=== PATIENT | female | born 1965 | race Caucasian/White ===

== ENCOUNTER → 2019-04-01 | Outpatient (CLI) | payer OTHER ==
[~2019-04-01] MED LIST: ASPI325T8 PO; ATOR20TA58 PO; IBUP1TAB12 PO; METO-239 PO
--- NOTE | 2019-04-01 16:42 | RAD ---
MR#: [id number] Date of Study: 04/01/2019 Ordering Physician: SHELBI ARZOLA, Referring Physician: APRYL WILSON Tech: RT Ada Taylor) (N) APPROVED REPORT Test Type: Exercise Stress Nurse/Tech: RT Claudia (Ronnie) (N) Test Indications: chest pain Cardiac History: none Medications: see EHR Medical History: see EHR Resting ECG: sinus rythym Resting Heart Rate: 66 bpm Resting Blood Pressure: 141/86mmHg Pretest Chest Pain: None Nurse/Tech Notes Consent: The procedure was explained to the patient in lay terms. Informed consent was witnessed. Mateusz eout was entered into [employer]. History and Stress Test performed by RT Ada Taylor) (N) POST EXERCISE Reason for Termination: Fatigue Target HR: Yes Max HR: 190 bpm 113% of Maximum Predicted HR: 168 bpm Exercise duration: 6:11 min:sec, 2 Stage Exercise capacity: 7METs Max Blood Pressure: 194/101mmHg Chest Pain: No. INTERPRETATION Stress EKG Conclusion: No evidence of stress induced EKG changes. Imaging Protocol IMAGE PROTOCOL: Rest Tc-99m/stress Tc-99m 1 day Rest: Stress: Viability: Radiopharm.Tc99m [id number] Sestamibi Dose10.5mCi 31.3mCi Duration 15min. 10min. Img Date 04/01/2019 04/01/2019 Inj-Img [id number]. 60min. Post-Injection Exercise: 1 minute Rest Admin Site:IV - Left AntecubitalAdministrator: RT Claudia (Ronnie)(N) Stress Admin Site: IV - Left AntecubitalAdministrator: RT Ada Taylor)(N) STRESS DATA End Diast. Vol.72.0mlAv. Heart Rate76.0bpm End Syst. Vol.18.0mlCO Index BSA0.0L/min Myocardial Fyyu184.0gEject. Eetkbcik05.0% Stress Rates Pk. Fill Rate3.33EDV/secLVtime Pk. Fill 220.45msec Pk. Empty Rate3.75ESV/secLVtime Pk. Rghip058.05msec 1/3 Pk. Fill1.41EDV/sec Stress Scores Regional WT0.00Summed WT0.00 Regional WM0.00Summed WM2.00 The rest and stress images show normal perfusion, normal contraction and thickening. LV Perf. Quant 17 Seg. SSS0.00 17 Seg. SRS1.00 17 Seg. SDS0.00 Stress Defect Extent (% LAD)0.00Rest Defect Extent (% LAD)0.00Rev. Defect Extent (% LAD)0.00 Stress Defect Extent (% LCX) 0.00Rest Defect Extent (% LCX)0.00Rev. Defect Extent (% LCX)0.00 Stress Defect Extent (% RCA)0.00Rest Defect Extent (% RCA)0.00Rev. Defect Extent (% RCA)0.00 Stress Defect Extent (% DARIEN)0.00Rest Defect Extent (% DARIEN)0.00Rev. Defect Extent (% DARIEN)0.00 Other Information Quality:Good Risk Assessment: Low Risk Conclusion 1. No evidence of EKG changes with stress testing. 2. Normal perfusion at stress/rest. 3. Low risk study. 4. EF > 60%. Signed by : Shelbi Arzola, Electronically Approved : 04/01/2019 16:41:52
== END | disposition home or self-care (01) ==
LOC: NM 08:24
PROVIDERS: ATTEND Internal Medicine Cardiovascular Disease
DX: R07.9 Chest pain, unspecified (principal)
CPT/HCPCS: 78452; 93017; A9500; 96376

== ENCOUNTER → 2020-08-11 | Outpatient (CLI) | payer OTHER ==
--- NOTE | 2020-08-11 09:25 | RAD ---
US ABDOMEN LIMITED History: Right upper quadrant pain. Comparison: None. Technique: Sonographic examination of the right upper quadrant of the abdomen. Findings: Pancreas: Partially obscured. Visualized portions unremarkable. Liver: The liver measures 18.6 cm. Liver echotexture is diffusely increased. No focal hepatic lesio ns. Hepatopetal flow in the portal vein. Gallbladder: No gallstones, wall thickening or pericholecystic fluid. Sonographic Gonzalez's sign is re portedly negative. Bile ducts: The common duct measures 4 mm. Right kidney: 11.2 cm in length. No focal lesion, calculi or hydronephrosis. Aorta/IVC: Visualized portions are unremarkable. Other: No ascites. Impression: 1. Enlarged fatty liver. 2. No cholelithiasis or cholecystitis. Electronically signed by: Edinson Molina MD (08/11/2020 9:22 AM) [id number]
== END ==
LOC: US 08:50
PROVIDERS: ATTEND Family Medicine
DX: K76.0 Fatty (change of) liver, not elsewhere classified (principal); R19.01 Right upper quadrant abdominal swelling, mass and lump
CPT/HCPCS: 76705

== ENCOUNTER 2021-01-15 01:33 | Emergency (ER) | payer OTHER ==
[~2021-01-15] VITALS: Ht 162.6 cm; Wt 62.0 kg
--- NOTE | 2021-01-15 02:12 | PHYS DOC ---
Past History Past Surgical History: , Hysterectomy, Tonsillectomy Additional Past Surgical Histo: ACL repair Adult General Chief Complaint Chief Complaint: CHEST PAIN HPI HPI Patient is a 55-year-old female who presents with a chief complaint of substernal chest pain, sharp in nature radiating from her mid chest outward which started a couple hours before coming to the emergency department stop before coming. States she has had these episodes before has seen a primary care physician and county or city auditor. Denies any recent trauma, travel, illnesses, dyspnea on exertion, orthopnea, PND or edema. Denies any history of VTE. Review of Systems Review of Systems Review of systems otherwise unremarkable except noted in HPI Allergies Allergies Allergies Uncoded Allergies Type Severity Reaction Last Updated Verified SURGICAL TAPE Allergy Intermediate Rash 04/01/19 Physical Exam Physical Exam Constitutional: Well developed, well nourished, no acute distress, non-toxic appearance. [] HENT: Normocephalic, atraumatic, bilateral external ears normal, oropharynx moist, no oral exudates, nose normal. [] Eyes: conjunctiva normal, no discharge. [] Neck: Normal range of motion, no tenderness, supple, no stridor. [] Cardiovascular:Heart rate regular rhythm, no murmur [] Lungs & Thorax: Bilateral breath sounds clear to auscultation [] Abdomen:soft, no tenderness, no masses, no pulsatile masses. [] Skin: Warm, dry, no erythema, no rash. [] Back: No tenderness, no CVA tenderness. [] Extremities: No tenderness, no cyanosis, no clubbing, ROM intact, no edema. [] Neurologic: Alert and oriented X 3, normal motor function, normal sensory function, no focal deficits noted. [] Psychologic: Affect normal, judgement normal, mood normal. [] Current Patient Data Vital Signs Vital Signs Date Time Temp Pulse Resp B/P (MAP) Pulse Ox O2 Delivery O2 Flow Rate FiO2 01/15/21 01:40 97.6 EKG EKG [] Radiology/Procedures Radiology/Procedures [] Heart Score C/O Chest Pain: Yes HEART Score for Chest Pain: HEART Score for Chest Pain Response (Comments) Value History Slighlty/Non-Suspicious 0 ECG Normal 0 Age >45 - < 65 1 Risk Factors 1 or 2 Risk Factors 1 Troponin < Normal Limit 0 Total 2 Risk Factors: Risk Factors: DM, Current or recent (<one month) smoker, HTN, HLP, family history of CAD, obesity. Risk Scores: Risk Factors: DM, Current or recent (<one month) smoker, HTN, HLP, family history of CAD, obesity. Course & Med Decision Making Course & Med Decision Making Patient is a 55-year-old female who presents with chest pain Vital signs not concerning. Physical exam noted above. EKG with a rate of 88, QRS of 86, QTc 451, no STEMI. Patient took 325 of aspirin before coming in. Troponin not concerning. Chest x-ray not concerning. Laboratory analysis not concerning. Patient remained asymptomatic even with exertion. Discussed all findings with patient and family. Patient states she has an upcoming appointment with her county or city auditor to discuss need for repeat stress test versus catheterization. States she had a normal stress test and echocardiogram about 2 months ago. Advised to follow-up first thing in the morning with primary care physician and county or city auditor to set up immediate follow-up. Gave strict return precautions to the ED. Patient grateful, verbalized understanding and agreed with plan of discharge. [] Dragon Disclaimer Dragon Disclaimer This electronic medical record was generated, in whole or in part, using a voice recognition dictation system. Departure Departure: Impression: Primary Impression: Chest pain Disposition: 01 HOME / SELF CARE / HOMELESS Condition: GOOD Referrals: WAQAS RUIZ MD (PCP) Patient Instructions: Chest Pain (Nonspecific) BRANDON KING MD Jan 15, 2021 02:12
[2021-01-15] MEDS ORDERED: ASPIRIN CHEWABLE 81 MG TABLET. PO ONE (02:30)
[2021-01-15 02:37] LABS: BASO # 0.1 x10^3/uL (0.0-0.2); BASO % 1 % (0-3); EOS # 0.5 x10^3/uL (0.0-0.7); EOS % 4 % (0-3); HEMATOCRIT 41.1 % (36.0-47.0); HEMOGLOBIN 14.1 g/dL (12.0-15.5); LYMPH # 4.2 x10^3/uL (1.0-4.8); LYMPH % 33 % (24-48); MEAN CORPUSCULAR HEMOGLOBIN 33 pg (25-35); MEAN CORPUSCULAR HGB CONC 34 g/dL (31-37); MEAN CORPUSCULAR VOLUME 96 fL (79-100); MONO # 0.9 x10^3/uL (0.0-1.1); MONO % 7 % (0-9); NEUT # 7.2 x10^3uL (1.8-7.7); NEUT % 56 % (31-73); PLATELET COUNT 289 x10^3/uL (140-400); RED BLOOD COUNT 4.27 x10^6/uL (3.50-5.40); RED CELL DISTRIBUTION WIDTH 13.8 % (11.5-14.5); WHITE BLOOD COUNT 12.8 x10^3/uL (4.0-11.0)
[2021-01-15 02:47] LABS: CALCIUM 8.6 mg/dL (8.5-10.1); CREATININE 0.7 mg/dL (0.6-1.0); GFR 87.2
[2021-01-15 03:25] VITALS: BP 98/70
[2021-01-15] MEDS ORDERED: POTASSIUM CHLORIDE 20 MEQ TABLET.ER. PO ONE (03:30)
--- NOTE | 2021-01-15 03:33 | EKG ---
[address] [address] Test Date: 2021-01-15 Test Time: 01:39:22 Pat Name: ZEENAT CASTANEDA Department: Room: Gender: F [employer] Machine Set Up Operator: : 1965 Requested By: BRANDON KING Order Number: [id number] Reading MD: Measurements Intervals [place] Rate: 88 P: 76 MT: 160 QRS: 46 QRSD: 86 T: 28 QT: 370 QTc: 451 Interpretive Statements SINUS RHYTHM NORMAL ECG RI6.02 No previous ECG available for comparison
--- NOTE | 2021-01-15 08:39 | RAD ---
XR CHEST 1V CLINICAL INDICATIONS: Chest pain COMPARISON: September 27, 2013. Findings: No acute lung infiltrate or pleural effusion or pulmonary edema or lung mass or pneumothora x is seen. The heart size, pulmonary vasculature, mediastinum and both tonie are unremarkable. IMPRESSION: No acute radiographic abnormality is seen. Electronically signed by: Amari Bailey MD (01/15/2021 8:37 AM) [id number]
== END 2021-01-15 03:25 | disposition home or self-care (01) ==
LOC: ER 01:33
DX: R07.2 Precordial pain (principal); Z88.8 Allergy status to other drugs, medicaments and biological substances
CPT/HCPCS: 36415; 71045; 80048; 84484; 85025; 93005; 99285